=== PATIENT | female | born 1955 | race Caucasian/White ===

== ENCOUNTER 2017-04-27 13:46 | Inpatient (IN) | payer BC ==
[~2017-04-27 13:46] MED LIST: ETOMIDATE 20 MG INJ; SUCCINYLCHOLINE CHLORIDE 100 MG/5 ML SYG IV
[2017-04-27] MEDS ORDERED: ACETAMINOPHEN 650MG/20.3ML CUP GTB (14:30)
[2017-04-27] MEDS ORDERED: CLOTRIMAZOLE 1% 30 GM CR TOP (14:30)
[2017-04-27] MEDS ORDERED: MAGNESIUM CITRATE 300 ML BTL PO (14:30)
[2017-04-27] MEDS ORDERED: ACET/BUTAL/CAFF TAB GTB ×2 (14:30)
[2017-04-27] MEDS ORDERED: CEFTRIAXONE 1 GM/50 ML (PMX) 50 ML IVPB ×2 (14:30→15:30)
[2017-04-27] MEDS ORDERED: traMADol 50 MG TAB GTB (14:30)
[2017-04-27] MEDS ORDERED: BALSAM PERU/CASTOR OIL 60 GM TUBE TOP (14:30)
[2017-04-27 14:57] LABS: AADO2 Arterial 484.3 mmHg (7.0-24.0); Allen Test ACCEPTAB; Arterial Base Excess -3.2 mmol/L (-3.0-3); Arterial Blood Gas Oxygen Sat 98.8 mmHG (95.0-98.0); Arterial COHb 0 % (0.0-3.0); Arterial Fraction of Oxyhgb 98.5 % (93.0-99.0); Arterial HCO3 24.1 mmol/L (22.0-26.0); Arterial MetHb 0.3 % (0.0-1.5); Arterial Total Hemglobin 12.8 g/dl (12.0-18.0); Arterial pCO2 53.1 mmhg (35-45); MODE VENT - AC; Site Right Radial
[2017-04-27] MEDS ORDERED: VANCOMYCIN IV PER PHARMACY XX (15:00)
[2017-04-27] MEDS: SOD CHLORIDE 0.9% 1,000 ML IV ×2 (15:27→16:06)
[2017-04-27] MEDS ORDERED: GLUCOSE GEL 15 GRAM TUBE PO ×2 (15:30)
[2017-04-27] MEDS ORDERED: DEXTROSE 50% 50 ML SYRINGE IV ×2 (15:30)
[2017-04-27] MEDS ORDERED: GLUCOSE GEL 15 GRAM TUBE BUCCAL (15:30)
[2017-04-27] MEDS ORDERED: GLUCAGON 1 MG INJ IM (15:30)
[2017-04-27] MEDS: NORepinephrine 8MG/250 ML (PMX 250 ML IV (15:34)
[2017-04-27 16:03] LABS: ADD MAN DIFF? NO
[2017-04-27 16:07] LABS: WHITE BLOOD COUNT 13.6 10^3/ul (4.8-10.8)
[2017-04-27 16:07] LABS: BASOPHILS % 0.1 % (0.0-2.0); EOSINOPHILS % 0.1 % (0.0-7.0); HEMATOCRIT 36.1 % (37.0-47.0); HEMOGLOBIN 11.9 g/dl (12.0-16.0); LYMPHOCYTES # 1.9 10^3/ul (0.8-2.9); LYMPHOCYTES % 13.7 % (15.0-51.0); MEAN CORPUSCULAR HEMOGLOBIN 29.8 pg (29.0-33.0); MEAN CORPUSCULAR VOLUME 90.5 fl (82.0-101.0); MEAN PLATELET VOLUME 10.8 fl (7.4-10.4); MONOCYTE # 0.4 10^3/ul (0.3-0.9); MONOCYTES % 3.1 % (0.0-11.0); NEUTROPHIL # 11.1 10^3/ul (1.6-7.5); NEUTROPHILS % 81.5 % (39.0-77.0); PLATELET COUNT 136 10^3/UL (140-415); RED BLOOD COUNT 3.99 10^6/ul (4.20-5.40); RED CELL DISTRIBUTION WIDTH 14.9 % (11.5-14.5)
[2017-04-27] MEDS: VANCOMYCIN 2 GM in SOD CHLORIDE 0.9% 500 ML IVPB (16:23)
[2017-04-27] MEDS: INSULIN ASPART [NOVOLOG] 3 ML PEN SC ×2 (16:25→20:03)
[2017-04-27] MEDS: CLOTRIMAZOLE 1% 30 GM CR TOP (16:25)
[2017-04-27 16:27] LABS: ALANINE AMINOTRANSFERASE 102 IU/L (13-69); ALBUMIN 2.8 g/dl (3.3-4.9); ALBUMIN/GLOBULIN RATIO 1.27; ALKALINE PHOSPHATASE 90 IU/L (42-121); ANION GAP 14 (8-16); ASPARTATE AMINO TRANSFERASE 33 IU/L (15-46); BLOOD UREA NITROGEN 22 mg/dl (7-20); CALCIUM 7.9 mg/dl (8.4-10.2); CARBON DIOXIDE 26 mmol/L (21-31); CHLORIDE 104 mmol/L (97-110); GLUCOSE 124 mg/dl (70-220); INR 1.04; MAGNESIUM 1.8 mg/dl (1.7-2.5); PHOSPHORUS 4.8 mg/dl (2.5-4.9); PROTIME 13.7 Sec (11.9-14.9); PT RATIO 1.1; SODIUM 141 mmol/L (135-144)
[2017-04-27 16:28] LABS: PARTIAL THROMBOPLASTIN TIME 25.8 Sec (25.0-35.0)
[2017-04-27 16:38] LABS: POTASSIUM 2.9 mmol/L (3.5-5.1)
[2017-04-27 16:43] LABS: LACTIC ACID 2.3 mmol/L (0.5-2.0)
[2017-04-27] MEDS ORDERED: ALBUTEROL/IPRATROPIUM (NEB) 3 ML AMP HHN (17:00)
[2017-04-27] MEDS ORDERED: VANCOMYCIN 2 GM in DEXTROSE 5% 500 ML IVPB (17:00)
[2017-04-27] MEDS: metFORMIN 500 MG TAB GTB (17:02)
[2017-04-27 17:04] LABS: ADD UMIC YES; UR AMORPHOUS CRYSTAL MODERATE /HPF (NONE SEEN); UR ASCORBIC ACID NEGATIVE (NEGATIVE); UR BACTERIA FEW /HPF (NONE SEEN); UR BILIRUBIN (Dip) NEGATIVE (NEGATIVE); UR BLOOD (Dip) 1+ mg/dL (NEGATIVE); UR CLARITY CLOUDY (CLEAR); UR COLOR YELLOW (YELLOW); UR GLUCOSE (Dip) NEGATIVE (NEGATIVE); UR KETONES (Dip) NEGATIVE (NEGATIVE); UR LEUKOCYTE ESTERASE (Dip) TRACE Leu/ul (NEGATIVE); UR NITRITE (Dip) NEGATIVE (NEGATIVE); UR RBC 8 /HPF (0-5); UR SPECIFIC GRAVITY (Dip) 1.008 (1.003-1.030); UR SQUAMOUS EPITHELIAL CELL MODERATE /HPF (FEW); UR TOTAL PROTEIN (Dip) 1+ mg/dl (NEGATIVE); UR UROBILINOGEN (Dip) NEGATIVE (NEGATIVE); UR WBC 21 /HPF (0-5)
[2017-04-27] MEDS: VASOPRESSIN 60 UNIT in DEXTROSE 5% 57 ML IV (17:56)
[2017-04-27] MEDS ORDERED: PHENYLephrine 20MG IN 250 ML 250 ML (18:13)
[2017-04-27] MEDS: POTASSIUM CHLORIDE 100 ML IVPB ×2 (18:17→21:35)
[2017-04-27] MEDS: PHENYLephrine 20MG IN 250 ML 250 ML IV ×3 (18:23→22:06)
[2017-04-27] MEDS ORDERED: POTASSIUM CHLORIDE 0 ML (19:57)
[2017-04-27] MEDS: APIXABAN 5 MG TABLET GTB (20:17)
[2017-04-27] MEDS: FISH OIL 1,000 MG CAP PO (20:19)
[2017-04-27] MEDS: NYSTATIN 30 GM POWDER BTL TOP (20:19)
[2017-04-27] MEDS: MONTELUKAST 10 MG TAB PO (20:19)
[2017-04-27] MEDS: DOCUSATE SODIUM 10 MG/ML (10ML CUP) GTB (20:19)
[2017-04-27] MEDS: PSYLLIUM 28% PACKET PO (20:19)
[2017-04-27] MEDS: INSULIN GLARGINE [LANtus] 3 ML PEN SC (20:19)
[2017-04-27] MEDS: LACOSAMIDE (100 MG/10 ML PO SYR) GTB (20:20)
[2017-04-27] MEDS: ALBUTEROL/IPRATROPIUM (NEB) 3 ML AMP HHN (21:00)
[2017-04-27] MEDS ORDERED: LACOSAMIDE (100 MG/10 ML PO SYR) GTB (21:00)
[2017-04-27] MEDS: ALBUMIN HUMAN 25% 100 ML IV (21:31)
[2017-04-27] MEDS: DEXAMETHASONE 4 MG/ML 1 ML INJ IV (22:12)
[2017-04-27] MEDS: PIPER-TAZO 3.375 GM IV (PMX) 100 ML IVPB (22:12)
[2017-04-28] MEDS: PHENYLephrine 20MG IN 250 ML 250 ML IV ×2 (00:10→03:02)
[2017-04-28] MEDS: INSULIN ASPART [NOVOLOG] 3 ML PEN SC ×3 (01:39→09:00)
[2017-04-28] MEDS: MUPIROCIN 2% 22 GM OINT TOP ×2 (01:40→09:00)
[2017-04-28] MEDS: PHENYLephrine 40 MG in DEXTROSE 5% 496 ML IV (02:41)
[2017-04-28] MEDS: PHENYLephrine 160 MG in DEXTROSE 5% 484 ML IV (05:01)
[2017-04-28] MEDS: SOD CHLORIDE 0.9% 1,000 ML IV (05:28)
[2017-04-28] MEDS: VANCOMYCIN 1.25 GM in SOD CHLORIDE 0.9% 250 ML IVPB (05:33)
[2017-04-28] MEDS: NORepinephrine 32 MG in DEXTROSE 5% 218 ML IV (05:40)
[2017-04-28 05:55] LABS: WHITE BLOOD COUNT 9.8 10^3/ul (4.8-10.8)
[2017-04-28 05:55] LABS: ABNORMAL IP MESSAGE 1; HEMATOCRIT 39.1 % (37.0-47.0); HEMOGLOBIN 12.2 g/dl (12.0-16.0); MEAN CORPUSCULAR HEMOGLOBIN 29.1 pg (29.0-33.0); MEAN CORPUSCULAR HGB CONC 31.2 g/dl (32.0-37.0); MEAN CORPUSCULAR VOLUME 93.3 fl (82.0-101.0); MEAN PLATELET VOLUME 11.6 fl (7.4-10.4); PLATELET COUNT 153 10^3/UL (140-415); RED BLOOD COUNT 4.19 10^6/ul (4.20-5.40); RED CELL DISTRIBUTION WIDTH 15.5 % (11.5-14.5)
[2017-04-28] MEDS: VASOPRESSIN 60 UNIT in DEXTROSE 5% 57 ML IV ×2 (06:00→07:16)
[2017-04-28 06:28] LABS: ADD MAN DIFF? YES; POSITIVE DIFF @See below
[2017-04-28] MEDS: LEVOTHYROXINE 112 MCG TAB GTB (06:37)
[2017-04-28] MEDS: DEXAMETHASONE 4 MG/ML 1 ML INJ IV (06:37)
[2017-04-28] MEDS: LANSOPRAZOLE 30 MG CAP GTB (06:37)
[2017-04-28 06:42] LABS: ANION GAP 18 (8-16); BLOOD UREA NITROGEN 26 mg/dl (7-20); CARBON DIOXIDE 21 mmol/L (21-31); CHLORIDE 105 mmol/L (97-110); CREATININE 0.82 mg/dl (0.44-1.00); GLUCOSE 162 mg/dl (70-220); MAGNESIUM 1.5 mg/dl (1.7-2.5); PHOSPHORUS 4.5 mg/dl (2.5-4.9); POTASSIUM 3.9 mmol/L (3.5-5.1); SODIUM 140 mmol/L (135-144)
[2017-04-28] MEDS ORDERED: PHENYLephrine 40 MG in DEXTROSE 5% 496 ML IV (07:00)
[2017-04-28 08:27] LABS: ANISOCYTOSIS 2+ (0-0); BAND NEUTROPHILS #M 5.1 10^3/ul (0.0-0.6); BAND NEUTROPHILS % (M) 53 % (0-4); BURR CELLS 1+ (0-0); GIANT THROMBO% (M) 1 % (0-0); LYMPHOCYTES #M 0.5 10^3/ul (0.8-2.9); LYMPHOCYTES % (M) 6 % (15-51); METAMYELOCYTES #M 0.1 10^3/ul (0.0-0.0); METAMYELOCYTES %M 2 % (0-0); MICROCYTOSIS 2+ (0-0); MONOCYTE #M 0.1 10^3/ul (0.3-0.9); MONOCYTES % (M) 2 % (0-11); PLATELET ESTIMATE NORMAL; POIKILOCYTOSIS 2+ (0-0); REACTIVE LYMPHOCYTES #M 0.3 10^3/ul (0.0-0.0); REACTIVE LYMPHOCYTES% (M) 4 % (0-0); SEG NEUT #M 3.7 10^3/ul (1.6-7.5); SEGMENTED NEUTROPHILS (M) % 33 % (39-77); SMUDGE%M 7 % (0-0)
[2017-04-28] MEDS: DOCUSATE SODIUM 10 MG/ML (10ML CUP) GTB (09:00)
[2017-04-28] MEDS: PSYLLIUM 28% PACKET PO (09:00)
[2017-04-28] MEDS: SENNA TAB GTB (09:00)
[2017-04-28] MEDS: MULTIVITAMINS 30 ML CUP GTB (09:00)
[2017-04-28] MEDS: BALSAM PERU/CASTOR OIL 60 GM TUBE TOP (09:00)
[2017-04-28] MEDS: NYSTATIN 30 GM POWDER BTL TOP (09:00)
[2017-04-28] MEDS: FISH OIL 1,000 MG CAP PO (09:00)
[2017-04-28] MEDS: CLOTRIMAZOLE 1% 30 GM CR TOP (09:00)
[2017-04-28 09:01] LABS: AADO2 Arterial 599.8 mmHg (7.0-24.0); Allen Test ACCEPTAB; Arterial Base Excess -7.6 mmol/L (-3.0-3); Arterial Blood Gas Oxygen Sat 93.5 mmHG (95.0-98.0); Arterial COHb 0.3 % (0.0-3.0); Arterial HCO3 19.6 mmol/L (22.0-26.0); Arterial MetHb 0.2 % (0.0-1.5); Arterial Total Hemglobin 13.9 g/dl (12.0-18.0); Arterial pCO2 46.1 mmhg (35-45); MODE VENT - AC; Site Right Radial
[2017-04-28] MEDS: ZONISAMIDE GTB (09:30)
[2017-04-28] MEDS: APIXABAN 5 MG TABLET GTB (09:41)
[2017-04-28] MEDS: MAGNESIUM SULFATE 2 GM/50 ML 50 ML IVPB (09:42)
[2017-04-28] MEDS: LACOSAMIDE (100 MG/10 ML PO SYR) GTB (09:42)
[2017-04-28] MEDS ORDERED: morphine (DRIP) 100 MG/100 ML 100 ML IV (11:00)
[2017-04-28] MEDS ORDERED: CEFTRIAXONE 1 GM/50 ML (PMX) 50 ML IVPB (12:00)
[2017-04-30 18:12] LABS: PROCALCITONIN 0.16 ng/mL (<0.10)
== END 2017-04-28 12:40 | disposition expired | DRG 296 ==
LOC: ICU 13:46
PROC: 5A1935Z Respiratory Ventilation, Less than 24 Consecutive Hours (ICD-10-PCS; principal; 2017-04-27)
PROC: 0BH17EZ Insertion of Endotracheal Airway into Trachea, Via Natural or Artificial Opening (ICD-10-PCS; 2017-04-27)
DX: I46.9 Cardiac arrest, cause unspecified (principal); J96.91 Respiratory failure, unspecified with hypoxia; R57.9 Shock, unspecified; G93.40 Encephalopathy, unspecified; G93.1 Anoxic brain damage, not elsewhere classified; I82.409 Acute embolism and thrombosis of unspecified deep veins of unspecified lower extremity; C71.9 Malignant neoplasm of brain, unspecified; E83.42 Hypomagnesemia; G40.909 Epilepsy, unspecified, not intractable, without status epilepticus; E03.9 Hypothyroidism, unspecified; J45.909 Unspecified asthma, uncomplicated; Z85.89 Personal history of malignant neoplasm of other organs and systems; Z86.73 Personal history of transient ischemic attack (TIA), and cerebral infarction without residual deficits
CPT/HCPCS: 36600; 71045; 80048; 80053; 81001; 82803; 82962; 83605; 83735; 84100; 84145; 85025; 85610; 85730; 87040; 87081; 94003; 94770